=== PATIENT | female | born 1980 | race Caucasian/White ===

== ENCOUNTER 2018-02-28 10:20 | Outpatient (CLI) | payer BC, SELFPAY | END 2018-02-28 10:42 | disposition home or self-care (01) | PROVIDERS: PCP Emergency Medicine | DX: Z02.1 Encounter for pre-employment examination (principal) ==

== ENCOUNTER → 2020-01-11 09:45 | Outpatient (CLI) | payer BC, SELFPAY ==
--- NOTE | 2020-01-11 09:46 | US_ITS ---
PROCEDURE: US BREAST LT COMPLETE CLINICAL INDICATION: left breast palpable mass COMPARISON: No exams were available for comparison FINDINGS: A focused/targeted ultrasound of the left breast was performed with real-time static grayscale and color Doppler imaging technique. The examination demonstrates corresponding to the area of palpable concern a 1.3 x 0.5 cm mixed hypoechoic/hyperechoic wider than taller partially circumscribed oval-shaped non-specific mass in deep subcutaneous soft tissue at 9 o'clock location of the left breast. IMPRESSION: A 1.3 x 0.5 cm mixed hypoechoic/hyperechoic wider than taller non-specific palpable soft tissue mass seen in deep subcutaneous soft tissues of the left breast at 9 o'clock location, probably is benign, malignancy is not ruled out. The major limitation of this study is that the mammographic investigation was not included, would have yielded some more diagnostic conclusion. Recommend surgical consultation/diagnostic mammogram. Dictated by: Wojciech Gannon 01/12/2020 16:22 Electronically signed by Wojciech Gannon in [facility] 01/12/2020 16:22
== END ==
PROVIDERS: PCP Emergency Medicine; Visit Provider Nurse Practitioner Obstetrics & Gynecology
DX: N64.59 Other signs and symptoms in breast (principal)
CPT/HCPCS: 76641

== ENCOUNTER → 2022-09-09 07:14 | Outpatient (CLI) | payer OTHER, SELFPAY | PROVIDERS: PCP Nurse Practitioner Family; Visit Provider Nurse Practitioner Obstetrics & Gynecology | DX: N92.6 Irregular menstruation, unspecified (principal); Z32.00 Encounter for pregnancy test, result unknown | CPT/HCPCS: 36415; 84144; 84702 ==

== ENCOUNTER → 2022-09-16 16:50 | Outpatient (CLI) | payer OTHER, SELFPAY ==
--- NOTE | 2022-09-16 17:00 | US_ITS ---
FINAL REPORT CLINICAL HISTORY: for dates COMPARISON: None FINDINGS: There is a single live intrauterine gestation. movement visualized. Placenta is anterior. Cardiac activity is confirmed at 156 bpm. The ovaries appear unremarkable. MEASUREMENTS: ULTRASOUND AGE: 14 weeks 5 days. GESTATION AGE: 14 weeks 4 days. [place]-rump length: 88.0 mm consistent with 14 weeks 5 days. IMPRESSION: Single living IUP with ultrasound age of 14 weeks 5 days. Reviewed, Interpreted and Dictated by Rey Bowman MD Transcribed by Jessica Gómez Authenticated and [facility]
== END ==
PROVIDERS: PCP Nurse Practitioner Family; Visit Provider Nurse Practitioner Obstetrics & Gynecology
DX: Z34.90 Encounter for supervision of normal pregnancy, unspecified, unspecified trimester (principal)
CPT/HCPCS: 76805

== ENCOUNTER → 2022-10-14 11:01 | Outpatient (CLI) | payer OTHER, SELFPAY ==
[2022-10-14 11:43] LABS: Basophils % 0.4 % (0.1-2.0); Eosinophils # 0.2 K/mm3 (0.0-0.4); Eosinophils % 2.4 % (0.1-12.0); Hematocrit 37.7 % (37.0-47.0); Hemoglobin 12.5 g/dL (12.2-16.2); Lymphocytes % 24.6 % (10-50); Mean Corpuscular HGB Conc 33.1 g/dL (31.8-35.4); Mean Corpuscular Volume 90.6 fl (81-99); Mean Platelet Volume 7.8 fl (7.4-10.4); Monocytes # 0.4 K/mm3 (0.1-1.0); Monocytes % 4.6 % (1.7-9.3); Neutrophils # 5.5 K/mm3 (1.8-7.8); Neutrophils % 67.9 % (37.0-80.0); Platelet Count 188 K/mm3 (142-424); Red Blood Count 4.15 M/mm3 (4.20-5.40); Red Cell Distribution Width 13.4 % (11.5-17.5); White Blood Count 8.1 K/mm3 (4.8-10.8)
[2022-10-15 09:44] LABS: HIV Screen 4th Generation wRfx Non Reactive (Non Reactive); Rubella Antibodies, IgG <0.90 index (Immune >0.99)
[2022-10-15 11:13] LABS: Rapid Plasma Reagin Ab Titer Non Reactive (NonRea<1:1)
[2022-10-23 21:16] LABS: Hepatitis B Surface Antigen Negative; Hepatitis C Antibody Non Reactive
== END ==
PROVIDERS: PCP Nurse Practitioner Family; Visit Provider Nurse Practitioner Obstetrics & Gynecology
DX: Z34.90 Encounter for supervision of normal pregnancy, unspecified, unspecified trimester (principal); Z3A.18 18 weeks gestation of pregnancy
CPT/HCPCS: 36415; 85025; 86593; 86703; 86762; 86850; 87340; 87380; G0432

== ENCOUNTER → 2022-11-03 14:42 | Outpatient (CLI) | payer OTHER, SELFPAY ==
--- NOTE | 2022-11-03 14:42 | US_ITS ---
FINAL REPORT CLINICAL HISTORY: 20 WEEK ANATOMY SCAN please use anatomy template FINDINGS: There is a single live intrauterine gestation. Presentation is breech. The cervix is closed and measures 5.5. Placenta is anterior grade 1. movement is noted. Heart rate is detected at 140 beats per minute. Question cardiac anomaly. Umbilical cord insertion is noted. Four-chamber heart is noted. ABDOMEN: Both kidneys are unremarkable. SPINE: No anomalies identified. AMNIOTIC FLUID: Appropriate amount. MEASUREMENTS: ULTRASOUND AGE: 21 weeks 3 days. GESTATION AGE: 21 weeks days. ESTIMATED WEIGHT: 430 g GROWTH PERCENTILE: 49 % BPD: 5.04 cm corresponding to 21 weeks 2 days. OFD: 6.43 cm corresponding to 21 weeks 3 days. HC: 18.15 cm corresponding to 20 weeks 4 days. AC: 16.57 cm corresponding to 21 weeks 5 days. FL: 3.67 cm corresponding to 21 weeks 5 days. CEREBELLUM: 2.21 cm corresponding to 22 weeks 1 day. HUMERUS: 3.48 cm corresponding to 22 weeks 0 days. HC/AC: 1.10 CI: 78% FL/BPD: 73% FL/AC: 22% IMPRESSION: Single living IUP with an ultrasound age of 21 days. Question cardiac anomaly. Recommend level 2 ultrasound. Reviewed, Interpreted and Dictated by Shon Gaona III, MD Transcribed by Adrienne Reeves Authenticated and [facility]
== END ==
PROVIDERS: PCP Nurse Practitioner Family; Visit Provider Nurse Practitioner Obstetrics & Gynecology
DX: Z34.90 Encounter for supervision of normal pregnancy, unspecified, unspecified trimester (principal); Z3A.20 20 weeks gestation of pregnancy
CPT/HCPCS: 76811

== ENCOUNTER → 2022-12-19 08:05 | Outpatient (CLI) | payer OTHER, SELFPAY ==
[2022-12-19 08:47] LABS: Basophils # 0.1 K/mm3 (0-0.2); Basophils % 0.7 % (0.1-2.0); Eosinophils # 0.2 K/mm3 (0.0-0.4); Eosinophils % 2.6 % (0.1-12.0); Hemoglobin 11.6 g/dL (12.2-16.2); Lymphocytes # 2.6 K/mm3 (0.7-4.5); Lymphocytes % 28.3 % (10-50); Mean Corpuscular HGB Conc 32.3 g/dL (31.8-35.4); Mean Corpuscular Hemoglobin 28.8 pg (27.0-31.2); Mean Corpuscular Volume 89.3 fl (81-99); Mean Platelet Volume 7.7 fl (7.4-10.4); Monocytes # 0.5 K/mm3 (0.1-1.0); Monocytes % 5.5 % (1.7-9.3); Neutrophils # 5.7 K/mm3 (1.8-7.8); Platelet Count 191 K/mm3 (142-424); Red Blood Count 4.04 M/mm3 (4.20-5.40); White Blood Count 9.1 K/mm3 (4.8-10.8)
[2022-12-19 09:00] LABS: Glucose,Fasting 93 mg/dl (74-100)
[2022-12-19 11:15] LABS: Glucose 1 Hour 135 mg/dL (74-100)
== END ==
PROVIDERS: PCP Nurse Practitioner Family; Visit Provider Nurse Practitioner Obstetrics & Gynecology
DX: Z34.92 Encounter for supervision of normal pregnancy, unspecified, second trimester (principal); Z3A.27 27 weeks gestation of pregnancy
CPT/HCPCS: 36415; 82951; 85025

== ENCOUNTER → 2022-12-26 08:09 | Outpatient (CLI) | payer OTHER, SELFPAY ==
[2022-12-26 09:36] LABS: Glucose,Fasting 89 mg/dl (74-100)
[2022-12-26 10:53] LABS: Glucose 1 Hour 115 mg/dL (74-100)
[2022-12-26 11:43] LABS: Glucose 2 Hour 136 mg/dL (74-100)
[2022-12-26 12:39] LABS: Glucose 3 Hour 113 mg/dL (74-100)
== END ==
PROVIDERS: PCP Nurse Practitioner Family; Visit Provider Nurse Practitioner Obstetrics & Gynecology
DX: Z34.93 Encounter for supervision of normal pregnancy, unspecified, third trimester (principal); Z3A.29 29 weeks gestation of pregnancy
CPT/HCPCS: 36415; 82951

== ENCOUNTER → 2023-02-16 06:49 | Outpatient (CLI) | payer OTHER, SELFPAY ==
--- NOTE | 2023-02-16 06:49 | US_ITS ---
PROCEDURE: US OB BIOPHYSICAL PROFILE CLINICAL INDICATION: US OB BPP/Growth for LGA COMPARISON: FINDINGS: Transabdominal sonographic images of the uterus were obtained. From her established due date she is 36weeks 3days. The following parameters are obtained: Viable fetus in the cephalic presentation with an anterior placenta grade 1. The cervix measures 3.4 cm. Average ultrasound age is 36weeks 0 days. Estimated due date by ultrasound is 03/16/2023. Estimated weight is 6lb 5.15oz, 2868 grams. 46 percentile. heart rate: 114bpm bpm. BPD: 35weeks 1day OFD: 35weeks 1day HC: 34 weeks 5 days AC: 36 weeks 1 day FL: 37 weeks 5 days HC/AC: 0.97 Cephalic index: 0.8 FL/BPD: 0.84 FL/AC: 0.23 Amniotic fluid index: 8.54cm Qualitative AFV: 2 breathing movements: Gross body movements: 2 Tone: 2 Biophysical profile score: 6 No obvious anomalies evident.Kidneys, profile, bladder, stomach, three-vessel cord appear normal. IMPRESSION: 1. Fetus in the cephalic presentation with an anterior placenta grade 1. 2. The fluid is within normal limits with an amniotic fluid index of 8.54 cm. 3. There was no breathing movement today. movement was seen. 4. Ordering physician was notified and the patient will go to labor and delivery for NST. 5. There has been good interval growth with the fetus currently 46 percentile Dictated by: Ralph Hallman MD 02/17/2023 07:10 Ralph Hallman MD in [facility] 02/17/2023 07:10
== END ==
PROVIDERS: PCP Nurse Practitioner Family; Visit Provider Nurse Practitioner Obstetrics & Gynecology
DX: Z3A.36 36 weeks gestation of pregnancy; O36.60X0 Maternal care for excessive fetal growth, unspecified trimester, not applicable or unspecified
CPT/HCPCS: 76816; 76819; 86403

== ENCOUNTER 2023-02-16 08:01 | Outpatient (CLI) | payer OTHER, SELFPAY ==
[2023-02-16 08:13] VITALS: BMI 29.9
[2023-02-16 08:35] VITALS: BMI 29.1
[2023-02-16 08:38] LABS: Microscopic, Urine URINE MICROSCOPIC (MICROSCOPIC)
[2023-02-16 08:57] LABS: Opiate Screen,Urine Negative ng/ml (<300)
[2023-02-16 08:58] LABS: Phencyclidine Screen,Urine Negative ng/ml (<25)
[2023-02-16 08:59] LABS: Appearance,Urine Clear (Clear); Benzodiazepines Screen,Urine Negative ng/ml (<200); Color,Urine Yellow (Yellow)
[2023-02-16 09:00] LABS: Amphetamine/Metha Screen,Urine Negative ng/ml (<1000); Bilirubin,Urine Negative (Negative); Blood, Urine Negative (Negative); Glucose,Urine (UA) Negative (Negative); Ketones,Urine Negative (Negative); Leukocyte Esterase,Urine Negative (Negative); Nitrate,Urine Negative (Negative); Protein,Urine Negative (Negative); Specific Gravity, Urine <= 1.005 (1.005-1.030); Urobilinogen,Urine 0.2 EU/dl (0.2); WBC,Urine Occasional #/hpf (0-3)
[2023-02-16 09:01] LABS: Bacteria,Urine Trace /lpf; Barbiturates Screen,Urine Negative ng/ml (<200); Methadone Screen,Urine Negative ng/ml (<300)
[2023-02-16 09:02] LABS: Cannabinoid Screen,Urine Negative ng/ml (<50); Cocaine Screen,Urine Negative ng/ml (<300)
== END 2023-02-16 09:08 | disposition home or self-care (01) ==
LOC: OBOUT 08:04 → OB 08:06
PROVIDERS: PCP Nurse Practitioner Family; Visit Provider Nurse Practitioner Obstetrics & Gynecology
DX: Z34.93 Encounter for supervision of normal pregnancy, unspecified, third trimester (principal); Z3A.36 36 weeks gestation of pregnancy
CPT/HCPCS: 59025; 80305; 81001; G0463

== ENCOUNTER → 2023-02-16 16:48 | Outpatient (CLI) | payer OTHER, SELFPAY | PROVIDERS: Visit Provider Nurse Practitioner Obstetrics & Gynecology | DX: Z34.90 Encounter for supervision of normal pregnancy, unspecified, unspecified trimester (principal) ==

== ENCOUNTER 2023-03-07 05:14 | Inpatient (IN) | payer OTHER, SELFPAY ==
[2023-03-07 05:17] VITALS: BMI 25.8
[2023-03-07 05:50] LABS: MANUAL DIFFERENTIAL MANUAL DIFFERENTIAL (MANUAL DIFF)
[2023-03-07 05:58] VITALS: BP 128/83; PULSE 69; RESP 18; TEMP 36.9; O2SAT 97; BMI 25.8
[2023-03-07 06:10] LABS: Basophils # 0.1 K/mm3 (0-0.2); Basophils % 0.8 % (0.1-2.0); Eosinophils # 0.2 K/mm3 (0.0-0.4); Eosinophils % 2.7 % (0.1-12.0); Hematocrit 40.4 % (37.0-47.0); Hemoglobin 13.3 g/dL (12.2-16.2); Lymphocytes # 2.9 K/mm3 (0.7-4.5); Lymphocytes % 31.8 % (10-50); Mean Corpuscular HGB Conc 32.8 g/dL (31.8-35.4); Mean Corpuscular Hemoglobin 29.4 pg (27.0-31.2); Mean Corpuscular Volume 89.8 fl (81-99); Mean Platelet Volume 9.1 fl (7.4-10.4); Monocytes # 0.5 K/mm3 (0.1-1.0); Monocytes % 5.6 % (1.7-9.3); Neutrophils # 5.3 K/mm3 (1.8-7.8); Neutrophils % 59.1 % (37.0-80.0); Platelet Count 178 K/mm3 (142-424); Red Blood Count 4.51 M/mm3 (4.20-5.40); Red Cell Distribution Width 13.6 % (11.5-17.5)
[2023-03-07 06:51] LABS: Amphetamine/Metha Screen,Urine Negative ng/ml (<1000); Benzodiazepines Screen,Urine Negative ng/ml (<200)
[2023-03-07 06:52] LABS: Barbiturates Screen,Urine Negative ng/ml (<200)
[2023-03-07 06:53] LABS: Cannabinoid Screen,Urine Negative ng/ml (<50); Methadone Screen,Urine Negative ng/ml (<300)
[2023-03-07 06:54] LABS: Cocaine Screen,Urine Negative ng/ml (<300)
[2023-03-07 06:55] LABS: Opiate Screen,Urine Negative ng/ml (<300)
[2023-03-07 06:56] LABS: Phencyclidine Screen,Urine Negative ng/ml (<25)
[2023-03-07 08:41] LABS: Eosinophils % 2 % (0-3); Lymphocytes % 34 % (10-50); Monocytes % 5 % (2-9); Neutrophils % 59 % (42-76); Platelet Estimate Normal; RBC Morphology Normal; Total Cells Counted 100
--- NOTE | 2023-03-07 08:59 | EXP.OB.APHP ---
OB - H&P: HPI Antepartum History of Present Illness Chief complaint: Leakage of fluid History of present illness: Mrs Yolie Melara is a 42 yo at 39w1d who presents to [facility] L&D with complaint of leakage of fluid. She woke from sleep around 0400 leaking fluid. Contractions started once she got to the hospital around 0500. Baby is very active. Upon arrival to L&D she was grossly ruptured. SVE /-3 per RN. History of Present Criteria for establishing EDC:: LMP confirmed by 2nd trimester US care: good care Ultrasounds: normal mid trimester US Obstetrical complications: none Medical complications: none Labs Blood type: B (+) positive Rubella: nonimmune RPR/VDRL: nonreactive GBS status: negative HBsAG: negative [facility] Disclaimer: The information contained in this section may have been updated after the patient was seen, as this information can be updated by other users. Medical History (Updated 03/07/23 @ 09:19 by Maria Eugenia Babcock DO) History of depression with 39 completed weeks gestation Rubella non-immune status, antepartum Spontaneous rupture of amniotic membranes Surgical History Hx of tonsillectomy Hx of wisdom tooth extraction Family History Other Heart attack Social History Smoking Status: Former smoker alcohol intake: former substance use type: denies use current occupational status: unemployed Travel in the last 8 weeks: None Review of Systems Review of Systems Review of systems:: pertinent systems reviewed and negative unless documented below Meds Home Medications and Allergies Home Medications Medication Instructions Recorded Confirmed Type ondansetron 4 mg disintegrating 4 mg PO Q8H PRN nausea and 09/11/22 03/07/23 Rx tablet vomiting #30 tabs famotidine 20 mg tablet (Pepcid) 20 mg PO DAILY Acid Reflux 03/07/23 03/07/23 History ferrous sulfate 325 mg (65 mg 325 mg PO DAILY Supplement 03/07/23 03/07/23 History iron) tablet,delayed release prenat.vits,meenakshi,[id number] 1 tab PO DAILY PREGNACY 03/07/23 03/07/23 History New Prescriptions to Start Prescriptions: Allergies Allergy/AdvReac Type Severity Reaction Status Date / Time No Known Drug Allergies Allergy Unknown Verified 03/03/23 15:32 OB - H&P: Exam Physical Exam Vital signs: Temp Pulse Resp BP Pulse Ox O2 Del Method 98.4 F 69 18 128/83 97 Room Air 03/07/23 05:58 03/07/23 05:58 03/07/23 05:58 03/07/23 05:58 03/07/23 05:58 03/07/23 05:58 Constitutional no acute distress and cooperative Routine HEENT Exam Head: Present normocephalic and atraumatic Eye: Absent conjunctivae pink ENT: Present mucous membranes moist Routine Neck Exam Present full ROM Routine Respiratory Exam Present CTA bilaterally and normal respiratory effort Routine Cardiovascular Exam Present RRR Routine Abdominal Exam Present soft (Gravid); Absent tenderness Routine Rectal Exam Patient deferred: visual exam Routine Exam External: Present normal urethra appearance; Absent erythema, tenderness, lesions or lacerations Routine Extremities Exam Present full ROM; Absent edema or calf tenderness Routine Neurological Exam Present alert, oriented X3 and moving all extremities Routine Psychiatric Exam Present normal affect and cooperative Detailed Labor and Delivery Exam Dilation (cm): 2 Effacement (%): 60 Cervix position: mid station: -2 Consistency: soft Membranes: spontaneously ruptured (at 0400 03/07/23) Amniotic fluid: clear Baseline heart rate: 140 monitor accelerations: Present monitor decelerations: Variable accounting assistant variability: Moderate (11-25) Contraction frequency (min): 3 Tachysystole: No OB - Results Labs Labs: Short CBC 03/07/23 Range/Units 05:40
--- NOTE | 2023-03-07 10:18 | HMH.PHAINT1 ---
Pharmacy Intervention Comments: MEDICATION RECONCILIATION COMPLETE USING EXTERNAL PHARMACY FILL HISTORY.
--- NOTE | 2023-03-07 11:29 | EXP.ANES.CKL ---
[facility] Disclaimer: The information contained in this section may have been updated after the patient was seen, as this information can be updated by other users. Medical History History of depression with 39 completed weeks gestation Rubella non-immune status, antepartum Spontaneous rupture of amniotic membranes Surgical History Hx of tonsillectomy Hx of wisdom tooth extraction Family History Other Heart attack Social History Smoking Status: Former smoker alcohol intake: former substance use type: denies use current occupational status: unemployed Travel in the last 8 weeks: None [facility] Anesthesia Checklist Patient Identification Patient Identification: Arm Band Structural Data Admitted From: Inpatient Planned Operative Procedure/s: Labor epidural Consent for Planned Operative Procedure(s) Verified: Yes NPO Status Verified Time NPO: 00:00 Chart Verification Results Verified: CBC Additional verifications Patient : Yes Anesthesia Reactions: No Airway Assessment Mallampati Score:: Class I C-Spine Mobility Assessed: Yes TMJ Mobility Assessed: Yes Dentition: Good Dentition Neurological Assessment Level of Consciousness: Awake Hx Seizures: No Numbness or tingling in extremities: No Anesthesia Plan Anesthesia Risk discussed: Yes Anesthesia Plan: Verified ASA Class: II Anesthesia Type: Epidural
--- NOTE | 2023-03-07 23:07 | EXP.DN ---
Delivery Note Delivery Date:: 03/07/23 Delivery Time:: 22:51 Anesthesia Type: Epidural Was labor medically induced?: No Infant delivered prior to 39 weeks?: No Infant Gender: Female at 1 minute: 6 at 5 minutes: 8 Delivery Procedure:: Mom complete with epidural. Pushed for approximately 3 hours. Head delivered spontaneously over intact perineum in direct OP position. Nuchal cord x 1 was not able to be reduced. Cord clamped and cut at perineum. Anterior shoulder delivered with gentle downward pressure. Posterior shoulder and remainder of body delivered spontaneously. Baby placed on maternal abdomen, mouth and nares bulb suctioned, warmed/dried and stimulated. Placenta delivered spontaneously and intact. No lacerations. Mom and baby were skin to skin and doing well after delivery. Live female baby (baby's name is Varsha) APGARs 6, 8 EBL 100 mL Placental Delivery Description: Spontaneous
[2023-03-08 02:55] VITALS: BP 126/76; PULSE 64; RESP 18; TEMP 36.6; O2SAT 98
[2023-03-08 06:42] LABS: Basophils # 0.1 K/mm3 (0-0.2); Basophils % 0.3 % (0.1-2.0); Eosinophils # 0.1 K/mm3 (0.0-0.4); Eosinophils % 0.8 % (0.1-12.0); Hematocrit 37.9 % (37.0-47.0); Hemoglobin 12.3 g/dL (12.2-16.2); Lymphocytes # 2.5 K/mm3 (0.7-4.5); Lymphocytes % 15.9 % (10-50); Mean Corpuscular HGB Conc 32.4 g/dL (31.8-35.4); Mean Corpuscular Volume 89.5 fl (81-99); Mean Platelet Volume 9.2 fl (7.4-10.4); Monocytes # 0.8 K/mm3 (0.1-1.0); Neutrophils # 12.3 K/mm3 (1.8-7.8); Neutrophils % 77.9 % (37.0-80.0); Platelet Count 150 K/mm3 (142-424); Red Blood Count 4.23 M/mm3 (4.20-5.40); Red Cell Distribution Width 13.7 % (11.5-17.5); White Blood Count 15.8 K/mm3 (4.8-10.8)
[2023-03-08 06:48] LABS: MANUAL DIFFERENTIAL MANUAL DIFFERENTIAL (MANUAL DIFF)
[2023-03-08 08:14] LABS: Lymphocytes % 10 % (10-50); Monocytes % 3 % (2-9); Neutrophils % 87 % (42-76); Platelet Estimate Normal; RBC Morphology Normal; Total Cells Counted 100
[2023-03-08 09:00] VITALS: BP 138/7; PULSE 63; RESP 18; TEMP 36.6
[2023-03-08 17:00] VITALS: BP 147/85; PULSE 61
--- NOTE | 2023-03-08 17:13 | P.PN_ITS ---
Subjective *Date: 03/08/23 *Time: 08:35 Interval history: She delivered last night at 11 PM. She is doing very well. Her lochia is normal. She is breast-feeding. Medical Exam Vital signs and Labs for Last 24 Hours: Vital Signs Temp Pulse Resp BP Pulse Ox O2 Del Method 03/08/23 02:55 97.8 F 64 18 126/76 98 Room Air Laboratory Results - last 24 hr 03/08/23 06:12: WBC 15.8 H D, RBC 4.23, Hgb 12.3, Hct 37.9, MCV 89.5, MCH 29.0, MCHC 32.4, RDW 13.7, Plt Count 150, MPV 9.2, Neut % (Auto) 77.9, Lymph % (Auto) 15.9, Bullock % (Auto) 5.0, Eos % (Auto) 0.8, Baso % (Auto) 0.3, Neut # (Auto) 12.3 H, Lymph # (Auto) 2.5, Bullock # (Auto) 0.8, Eos # (Auto) 0.1, Baso # (Auto) 0.1, Total Counted 100, Neutrophils % (Manual) 87 H, Lymphocytes % (Manual) 10, Monocytes % (Manual) 3, Platelet Estimate Normal, RBC Morphology Normal I & O for Labs for Last 24 Hours: Intake & Output 03/06/23 03/07/23 03/08/23 03/09/23 11:59 11:59 11:59 11:59 Weight 160 lb Head: Present normocephalic Neck: Present normal inspection Respiratory: Present normal respiratory effort; Absent accessory muscle use Assessment and Plan *Assessment and plan (1) Normal delivery: Status: Acute Category: Medical Code(s): O80 - Encounter for full-term uncomplicated delivery (2) Spontaneous rupture of amniotic membranes: Status: Acute Category: Medical (3) with 39 completed weeks gestation: Status: Acute Category: Medical Code(s): Z3A.39 - 39 weeks gestation of (4) Advanced maternal age in multigravida: Status: Acute Qualifiers: Trimester: third trimester Qualified Code(s): O09.523 - Supervision of elderly multigravida, third trimester Category: Medical Code(s): O09.529 - Supervision of elderly multigravida, unspecified trimester Plan She is doing very well . She is eating and drinking and ambulating. She is breast-feeding. We will plan to send her home tomorrow if all is well.
[2023-03-08 19:57] VITALS: BP 141/76; PULSE 71; RESP 18; TEMP 36.7; O2SAT 97
[2023-03-09 08:46] VITALS: BP 148/89
--- NOTE | 2023-03-09 08:47 | EXP.DC.SUM ---
General Admission date:: 03/07/23 Discharge date: 03/09/23 HPI HPI HPI: She is a 42-year-old 3 para 2 at 39 weeks gestational age. She arrived in early labor with grossly ruptured membranes. Hospital Course Hospital Course Hospital Course: She arrived with grossly ruptured membranes having a few contractions. She was started on IV oxytocin and progressed under labor epidural to full dilation. She delivered spontaneously a liveborn female child at 10:51 PM in the evening of March 07, 2023. The baby weighed 6 pounds 9 ounces and had Apgars of 6 at 1 minute and 8 at 5 minutes. He was direct OP. She has done well and has remained afebrile throughout her hospitalization. She is eating and drinking and ambulating. She is breast-feeding. She has B+ blood, she is rubella nonimmune and will receive MMR. She is group B streptococcus negative. Her typewriter assembler Dr. Pineda. She will be discharged home to follow-up with me in approximately 1 week's time. Her blood pressure has slightly elevated this morning in the 140/90 range. She is completely asymptomatic. She will continue with her vitamins and iron. Her condition on discharge is stable. Exam Data for Last 24 hours Vital signs and Labs for Last 24 Hours: Temp Pulse Resp BP Pulse Ox O2 Del Method 98.1 F 71 18 141/76 H 97 Room Air 03/08/23 19:57 03/08/23 19:57 03/08/23 19:57 03/08/23 19:57 03/08/23 19:57 03/08/23 19:57 I & O for Last 24 hours: Intake & Output 03/06/23 03/07/23 03/08/23 03/09/23 11:59 11:59 11:59 11:59 Weight 160 lb Constitutional Constitutional: no acute distress *Routine HEENT Exam Head: Present normocephalic *Routine Respiratory Exam Respiratory: Present normal respiratory effort; Absent accessory muscle use DS: Diagnosis Discharge Diagnosis (1) Normal delivery: Status: Acute Code(s): O80 - Encounter for full-term uncomplicated delivery (2) Spontaneous rupture of amniotic membranes: Status: Acute (3) with 39 completed weeks gestation: Status: Acute Code(s): Z3A.39 - 39 weeks gestation of (4) Advanced maternal age in multigravida: Status: Acute Code(s): O09.529 - Supervision of elderly multigravida, unspecified trimester Qualifiers: Trimester: third trimester Qualified Code(s): O09.523 - Supervision of elderly multigravida, third trimester (5) Rubella non-immune status, antepartum: Status: Acute Code(s): O09.899 - Supervision of other high risk pregnancies, unspecified trimester; Z28.39 - Other underimmunization status (6) hypertension: Status: Acute Code(s): O16.5 - Unspecified maternal hypertension, complicating the puerperium Meds Home Medications and Allergies Home Medications Medication Instructions Recorded Confirmed Type ondansetron 4 mg disintegrating 4 mg PO Q8H PRN nausea and 09/11/22 03/07/23 Rx tablet vomiting #30 tabs famotidine 20 mg tablet (Pepcid) 20 mg PO DAILY Acid Reflux 03/07/23 03/07/23 History ferrous sulfate 325 mg (65 mg 325 mg PO DAILY Supplement 03/07/23 03/07/23 History iron) tablet,delayed release prenat.vits,meenakshi,[id number] 1 tab PO DAILY PREGNACY 03/07/23 03/07/23 History New Prescriptions to Start Prescriptions: Allergies Allergy/AdvReac Type Severity Reaction Status Date / Time No Known Drug Allergies Allergy Unknown Verified 03/03/23 15:32 Discharge Plan Disposition Patient Disposition: Home, Self-Care Condition: Good Discharge Order Discharge Orders: Discharge Order (Routine); Ordered 03/09/23 Ordered By: Ralph Hallman Follow up Plan Follow up with: Ralph Hallman MD [Staff Physician] - 03/22/23 10:45 am Prescriptions/Medication Reconciliation: Continued ondansetron 4 mg tablet,disintegrating 4 mg PO Q8H PRN (Reason: nausea and vomiting) Qty: 30 2RF famotidine [Pepcid] 20 m
== END 2023-03-09 12:45 | disposition home or self-care (01) | DRG 807 ==
LOC: OBOUT 05:15 → OB 05:17
PROVIDERS: Admitting Provider Obstetrics & Gynecology; PCP Obstetrics & Gynecology; Visit Provider Obstetrics & Gynecology
DX: O69.81X0 Labor and delivery complicated by cord around neck, without compression, not applicable or unspecified (principal); Z37.0 Single live birth; Z3A.39 39 weeks gestation of pregnancy; O16.5 Unspecified maternal hypertension, complicating the puerperium
CPT/HCPCS: 59409; 36415; 59025; 80305; 85007; 85014; 85018; 85025; 85048; 85049; 86850; 94761; G0283; J2405